=== PATIENT | female | born 1980 | race African-American/Black ===

== ENCOUNTER 2016-09-02 04:07 | Emergency (ER) | payer OTHER ==
[~2016-09-02] VITALS: Ht 162.6 cm; Wt 88.0 kg
[2016-09-02 04:17] VITALS: BP 184/102
[2016-09-02] MEDS ORDERED: LORAZEPAM 1MG TABLET PO ONE (05:00)
== END 2016-09-02 05:50 | disposition home or self-care (01) ==
LOC: ER 04:07
DX: F41.0 Panic disorder [episodic paroxysmal anxiety] (principal); J45.909 Unspecified asthma, uncomplicated; G43.909 Migraine, unspecified, not intractable, without status migrainosus
CPT/HCPCS: 99284

== ENCOUNTER 2016-11-01 10:25 | Emergency (ER) | payer BC, OTHER ==
[~2016-11-01] VITALS: Ht 162.6 cm; Wt 85.0 kg
[2016-11-01] MEDS ORDERED: IBUPROFEN 600MG TABLET PO ONE (11:00)
[2016-11-01] MEDS ORDERED: KETOROLAC 60MG/2ML VIAL IM ONE (11:30)
[2016-11-01 11:50] VITALS: BP 128/78
== END 2016-11-01 13:02 | disposition home or self-care (01) ==
LOC: ER 10:25
DX: S63.699A Other sprain of unspecified finger, initial encounter (principal); J45.909 Unspecified asthma, uncomplicated; G43.909 Migraine, unspecified, not intractable, without status migrainosus; F12.10 Cannabis abuse, uncomplicated; Y08.89XA Assault by other specified means, initial encounter; Y93.89 Activity, other specified; Y92.89 Other specified places as the place of occurrence of the external cause; Z91.010 Allergy to peanuts
CPT/HCPCS: 73130; 81025; 96372; 99284; J1885; Z7610

== ENCOUNTER 2017-04-13 05:40 | Emergency (ER) | payer BC, OTHER ==
[~2017-04-13] VITALS: Ht 165.1 cm; Wt 88.0 kg
[2017-04-13 05:50] VITALS: BP 155/98
== END 2017-04-13 07:11 | disposition home or self-care (01) ==
LOC: ER 05:57
DX: F41.1 Generalized anxiety disorder (principal); F43.0 Acute stress reaction; J06.9 Acute upper respiratory infection, unspecified; J45.909 Unspecified asthma, uncomplicated; F12.10 Cannabis abuse, uncomplicated; R03.0 Elevated blood-pressure reading, without diagnosis of hypertension; G43.909 Migraine, unspecified, not intractable, without status migrainosus; Z91.010 Allergy to peanuts; Z91.013 Allergy to seafood
CPT/HCPCS: 99284; Z7610

== ENCOUNTER 2017-06-02 16:40 | Emergency (ER) | payer OTHER ==
[~2017-06-02] VITALS: Ht 162.6 cm; Wt 91.0 kg
[2017-06-02 17:17] LABS: CLARITY URINE CLEAR (CLEAR); COLOR URINE YELLOW (YELLOW); KETONES URINE TRACE (NEGATIVE); LEUKOCYTE ESTERASE URINE NEGATIVE (NEGATIVE); NITRITE URINE NEGATIVE (NEGATIVE); OCCULT BLOOD URINE NEGATIVE (NEGATIVE); PROTEIN URINE NEGATIVE (NEGATIVE); SPECIFIC GRAVITY URINE 1.027 (1.005-1.030); UROBILINOGEN URINE 0.2 E.U./dL (0.2-1.0)
[2017-06-02 17:38] LABS: BASOPHILS % 1.1 % (0.0-2.0); EOSINOPHILS % 4.1 % (0.0-5.0); HEMATOCRIT. 35.5 % (36.0-48.0); HEMOGLOBIN. 11.5 g/dL (12.0-16.0); LYMPHOCYTES % 35.5 % (20.0-50.0); MEAN CORPUSCULAR VOLUME 74.3 fL (81.0-99.0); MEAN PLATELET VOLUME 8.7 fl (7.4-10.4); MONOCYTES % 9.1 % (2.0-8.0); NEUTROPHILS % 50.2 % (40.0-76.0); PLATELET 302 x1000/uL (130-400); RED BLOOD CELL COUNT 4.78 mill/uL (4.2-5.4); RED CELL DISTRIBUTION WIDTH 17.9 % (11.6-14.6)
[2017-06-02 17:47] LABS: CHLORIDE 108 mEq/L (98-107)
[2017-06-02 17:53] LABS: B-HCG QUANTITATIVE 52 mIU/mL (<3)
[2017-06-02 19:35] VITALS: BP 144/69
== END 2017-06-02 20:45 | disposition home or self-care (01) ==
LOC: ER 17:27
DX: O20.0 Threatened abortion (principal); O99.511 Diseases of the respiratory system complicating pregnancy, first trimester; J45.909 Unspecified asthma, uncomplicated; O99.351 Diseases of the nervous system complicating pregnancy, first trimester; G43.909 Migraine, unspecified, not intractable, without status migrainosus; F12.10 Cannabis abuse, uncomplicated; Z3A.01 Less than 8 weeks gestation of pregnancy; Z91.010 Allergy to peanuts; Z91.013 Allergy to seafood
CPT/HCPCS: 36415; 76801; 80053; 81003; 84702; 85025; 86850; 86900; 99285

== ENCOUNTER 2018-01-23 16:41 | Emergency (ER) | payer OTHER | END 2018-01-23 17:30 | disposition left against medical advice (07) | LOC: ER 16:41 | DX: H92.09 Otalgia, unspecified ear (principal); Z53.21 Procedure and treatment not carried out due to patient leaving prior to being seen by health care provider ==

== ENCOUNTER 2018-01-24 09:26 | Emergency (ER) | payer MEDICAID, OTHER ==
[~2018-01-24] VITALS: Ht 162.6 cm; Wt 89.9 kg
[2018-01-24] MEDS ORDERED: IBUPROFEN 600MG TABLET PO ONE (10:30)
[2018-01-24 10:45] VITALS: BP 165/95
== END 2018-01-24 11:07 | disposition home or self-care (01) ==
LOC: ER 09:26
DX: S00.412A Abrasion of left ear, initial encounter (principal); S00.411A Abrasion of right ear, initial encounter; X58.XXXA Exposure to other specified factors, initial encounter; Y93.89 Activity, other specified; Y92.89 Other specified places as the place of occurrence of the external cause; Y99.8 Other external cause status
CPT/HCPCS: 99282